=== PATIENT | male | born 1980 | race Two or more races ===

== ENCOUNTER 2021-08-11 10:24 | Inpatient (IN) | payer SELFPAY ==
[~2021-08-11] VITALS: Ht 165.1 cm; Wt 76.9 kg
[2021-08-11] MEDS ORDERED: MORPHINE SULFATE 4 MG/ML INJ. IVP ONE (10:45)
[2021-08-11] MEDS ORDERED: IV NORMAL SALINE 1000ML BAG 1,000 ML IV ONE ×2 (10:45)
[2021-08-11 10:54] LABS: BASO % 1 % (0-3); EOS # 0.1 x10^3/uL (0.0-0.7); EOS % 1 % (0-3); HEMATOCRIT 48.1 % (39.0-53.0); HEMOGLOBIN 16.2 g/dL (13.0-17.5); LYMPH # 2.8 x10^3/uL (1.0-4.8); LYMPH % 39 % (24-48); MEAN CORPUSCULAR HEMOGLOBIN 30 pg (25-35); MEAN CORPUSCULAR HGB CONC 34 g/dL (31-37); MEAN CORPUSCULAR VOLUME 90 fL (79-100); MONO # 0.5 x10^3/uL (0.0-1.1); MONO % 7 % (0-9); NEUT # 3.8 x10^3/uL (1.8-7.7); NEUT % 53 % (31-73); PLATELET COUNT 285 x10^3/uL (140-400); RED BLOOD COUNT 5.35 x10^6/uL (4.30-5.70); RED CELL DISTRIBUTION WIDTH 13.5 % (11.5-14.5); WHITE BLOOD COUNT 7.2 x10^3/uL (4.0-11.0)
[2021-08-11] MEDS ORDERED: TETANUS AND DIPHTHERIA TOX/PF 0.5 ML DISP.SYRIN. VAX IM ONE (11:00)
[2021-08-11 11:03] LABS: CALCIUM 9.4 mg/dL (8.5-10.1); CREATININE 0.8 mg/dL (0.7-1.3); GFR 107.1; POTASSIUM 3.5 mmol/L (3.5-5.1)
[2021-08-11 11:04] LABS: PROTHROMBIN TIME PATIENT 13.3 SEC (11.7-14.0)
[2021-08-11 11:09] LABS: TOTAL BILIRUBIN 0.5 mg/dL (0.2-1.0); TOTAL PROTEIN 7.9 g/dL (6.4-8.2)
--- NOTE | 2021-08-11 11:14 | RAD ---
EXAM: XR FOOT_LEFT 3 VIEWS 08/11/2021 10:43 AM CLINICAL INDICATION: Trauma, left foot injury COMPARISON: None TECHNIQUE: 3 views of the left foot FINDINGS: There is a comminuted and displaced fracture of the great toe distal phalanx. Mildly displ aced fracture of the great toe proximal phalanx. Comminuted, mildly displaced fracture of the second metatarsal. Large dorsal soft tissue injury of the forefoot. There is some soft tissue gas. No defini te radiopaque foreign body. IMPRESSION: 1. Comminuted displaced fractures of the great toe proximal and distal phalanges and the second metat arsal. 2. Large soft tissue laceration along the dorsal forefoot. Correlate clinically for open fracture. No definite radiopaque foreign body. Electronically signed by: Junay Leung MD (08/11/2021 11:11 AM) [id number]
[2021-08-11] MEDS ORDERED: LISINOPRIL 10 MG TABLET PO ONE (11:15)
[2021-08-11] MEDS ORDERED: HYDROmorphone 2 MG/ML INJ. IVP ONE (11:30)
[2021-08-11] MEDS ORDERED: PIPERACILLIN/TAZOBACTAM 3.375 GM in IV NORMAL SALINE 50ML 50 ML IV ONE (12:00)
[2021-08-11] MEDS ORDERED: ONDANSETRON PF 4 MG/2 ML VIAL. ONE (12:06)
[2021-08-11] MEDS ORDERED: LIDOCAINE 2% PF 5 ML VIAL. ONE (12:06)
[2021-08-11] MEDS ORDERED: PROPOFOL 10 MG/ML (20ML) VIAL. IV ONE (12:06)
[2021-08-11] MEDS ORDERED: DEXAMETHASONE SOD PHOS 4 MG/ML VIAL ONE (12:06)
[2021-08-11] MEDS ORDERED: FAMOTIDINE 20 MG/2 ML VIAL ONE (12:07)
[2021-08-11] MEDS ORDERED: fentaNYL PF VIAL 100 MCG/2 ML VIAL ONE ×2 (12:08→12:29)
[2021-08-11 12:30] LABS: AMPHETAMINE/METHAMPHETAMINE NEG (NEG); BARBITURATES NEG (NEG); BENZODIAZEPINES NEG (NEG); CANNABINOIDS NEG (NEG); COCAINE NEG (NEG); METHADONE NEG (NEG); OPIATES POS (NEG); PHENCYCLIDINE NEG (NEG)
--- NOTE | 2021-08-11 12:39 | PDOC2 ---
CONSULT Date of Consult Date of Consult DATE: 08/11/21 TIME: 12:33 Reason for Consult Reason for Consult: L foot open fx Identification/Chief Complaint Chief Complaint L foot pain and swelling Source Source: Patient History of Present Illness Reason for Visit: Pt is non-DM, non-smoker who sustained a brown stock washer injury to the L foot and subsequent Hallux and 3rd met open fx. The brown stock washer cut through the tennis shoe and lacerated the big toe. Hemostasis was achieved with compression at the thigh by friends. ER eval consisted XR [+] open avulsion fx at distal hallux and comminuted 3rd met shaft fx, minimally displaced. Pt then received IV zosyn for pseudomonas, gram +/- bacteria coverage. Emergent bedside washout was done with NS. The open lesions were dressed with gauze and stabilized with a posterior splint. At bedside, pt was resting comfortably. With the tool trouble shooter's help, we found out that pt ate at 6:30 AM. The injury happened around 10 AM today. He was able to sensate and move the toes without injury or pain elsewhere. Current Medications Current Medications Current Medications Morphine Sulfate (Morphine Sulfate) 4 mg 1X ONCE IVP Last administered on 08/11/21at 10:53; Start 08/11/21 at 10:45; Stop 08/11/21 at 10:46; Status DC Sodium Chloride 1,000 ml @ 1,000 mls/hr 1X ONCE IV Last administered on 08/11/21at 10:54; Start 08/11/21 at 10:45; Stop 08/11/21 at 11:44; Status DC Sodium Chloride 1,000 ml @ 1,000 mls/hr 1X ONCE IV Last administered on 08/11/21at 10:54; Start 08/11/21 at 10:45; Stop 08/11/21 at 11:44; Status DC Tetanus/ Diphtheria Toxoids (Tenivac Syringe) 0.5 ml ONCE ONCE VAX IM Last administered on 08/11/21at 10:58; Start 08/11/21 at 11:00; Stop 08/11/21 at 11:01; Status DC Lisinopril (Prinivil) 20 mg 1X ONCE PO ; Start 08/11/21 at 11:15; Stop 08/11/21 at 11:16; Status Cancel Hydromorphone HCl (Dilaudid) 1 mg 1X ONCE IVP Last administered on 08/11/21at 11:36; Start 08/11/21 at 11:30; Stop 08/11/21 at 11:31; Status DC Piperacillin Sod/ Tazobactam Sod 3.375 gm/Sodium Chloride 50 ml @ 100 mls/hr 1X ONCE IV Last administered on 08/11/21at 11:37; Start 08/11/21 at 12:00; Stop 08/11/21 at 12:29; Status DC Propofol (Diprivan) 200 mg STK-MED ONCE IV ; Start 08/11/21 at 12:06; Stop 08/11/21 at 12:06; Status DC Lidocaine HCl (Lidocaine Pf 2% Vial) 5 ml STK-MED ONCE .ROUTE ; Start 08/11/21 at 12:06; Stop 08/11/21 at 12:06; Status DC Dexamethasone Sodium Phosphate (Decadron) 4 mg STK-MED ONCE .ROUTE ; Start 08/11/21 at 12:06; Stop 08/11/21 at 12:06; Status DC Ondansetron HCl (Zofran) 4 mg STK-MED ONCE .ROUTE ; Start 08/11/21 at 12:06; Stop 08/11/21 at 12:06; Status DC Famotidine (Pepcid Vial) 20 mg STK-MED ONCE .ROUTE ; Start 08/11/21 at 12:07; Stop 08/11/21 at 12:07; Status DC Fentanyl Citrate (Fentanyl 2ml Vial) 100 mcg STK-MED ONCE .ROUTE ; Start 2 at 12:08; Stop 08/11/21 at 12:08; Status DC Fentanyl Citrate (Fentanyl 2ml Vial) 100 mcg STK-MED ONCE .ROUTE ; Start 08/11/21 at 12:29; Stop 08/11/21 at 12:30; Status DC Allergies Allergies: Coded Allergies: No Known Drug Allergies (Unverified , 08/11/21) ROS Review of System CONSTITUTIONAL: No fever. No chills. No dizziness. No weakness. CARDIOVASCULAR: No chest pain. No palpitations. No lower extremity edema. RESPIRATORY: No shortness of breath, cough, pain with respiration. No hemoptysis. No dyspnea. GASTROINTESTINAL: Normal appetite. No nausea, vomiting, diarrhea. GENITOURINARY: No frequency, urgency, nocturia. No hematuria or dysuria. MUSCULOSKELETAL: Refer to HPI INTEGUMENTARY: Refer to HPI NEUROLOGIC: No numbness or tingling of the extremities. No weakness. PSYCHIATRIC: No confusion. ENDOCRINE: No fatigue. No weakness. HEMATOLOGICAL: No bleeding. No petechiae. No bruising. ALLERGIES: No asthma. No urticaria Physical Exam Physical Exam AOx3, pleasant Dermatology: -Severe laceration without adequate soft tissue coverage to the distal hallux at the level of DIPJ. The wound bed is granular without any gross contamination from grass, soil or fibrotics. The laceration is deep to periosteum/distal hallux marrow without any active bleeding. With limited examination through the splint, there is no exposed tendon dorsally Vascular: -CFT less than 3 seconds x 5 -Significant soft dermal hematoma changes to the distal pulp of the hallux without any fluctuance Neurology: -Light touch sensation intact to digits 1 through 5 Musculoskeletal: -Able to move digits 1 through 5 -Calf is soft and nontender Vitals VITALS Vital Signs Date Time Temp Pulse Resp B/P (MAP) Pulse Ox O2 Delivery O2 Flow Rate FiO2 08/11/21 12:06 19 100 Room Air 08/11/21 10:24 97.5 66 149/93 (111) 97.5 Labs Labs Laboratory Tests Test 08/11/21 10:30 08/11/21 11:00 White Blood Count 7.2 x10^3/uL (4.0-11.0) Red Blood Count 5.35 x10^6/uL (4.30-5.70) Hemoglobin 16.2 g/dL (13.0-17.5) Hematocrit 48.1 % (39.0-53.0) Mean Corpuscular Volume 90 fL (79-100) Mean Corpuscular Hemoglobin 30 pg (25-35) Mean Corpuscular Hemoglobin Concent 34 g/dL (31-37) Red Cell Distribution Width 13.5 % (11.5-14.5) Platelet Count 285 x10^3/uL (140-400) Neutrophils (%) (Auto) 53 % (31-73) Lymphocytes (%) (Auto) 39 % (24-48) Monocytes (%) (Auto) 7 % (0-9) Eosinophils (%) (Auto) 1 % (0-3) Basophils (%) (Auto) 1 % (0-3) Neutrophils # (Auto) 3.8 x10^3/uL (1.8-7.7) Lymphocytes # (Auto) 2.8 x10^3/uL (1.0-4.8) Monocytes # (Auto) 0.5 x10^3/uL (0.0-1.1) Eosinophils # (Auto) 0.1 x10^3/uL (0.0-0.7) Basophils # (Auto) 0.0 x10^3/uL (0.0-0.2) Prothrombin Time 13.3 SEC (11.7-14.0) Prothromb Time International Ratio 1.0 (0.8-1.1) Activated Partial Thromboplast Time 23 SEC (24-38) Sodium Level 141 mmol/L (136-145) Potassium Level 3.5 mmol/L (3.5-5.1) Chloride Level 104 mmol/L (98-107) Carbon Dioxide Level 28 mmol/L (21-32) Anion Gap 9 (6-14) Blood Urea Nitrogen 15 mg/dL (8-26) Creatinine 0.8 mg/dL (0.7-1.3) Estimated GFR (Cockcroft-Gault) 107.1 BUN/Creatinine Ratio 19 (6-20) Glucose Level 116 mg/dL (70-99) Calcium Level 9.4 mg/dL (8.5-10.1) Total Bilirubin 0.5 mg/dL (0.2-1.0) Aspartate Amino Transf (AST/SGOT) 12 U/L (15-37) Alanine Aminotransferase (ALT/SGPT) 28 U/L (16-63) Alkaline Phosphatase 108 U/L (46-116) Total Protein 7.9 g/dL (6.4-8.2) Albumin 4.0 g/dL (3.4-5.0) Albumin/Globulin Ratio 1.0 (1.0-1.7) Ethyl Alcohol Level < 10 mg/dL (0-10) Urine Opiates Screen Pos (NEG) Urine Methadone Screen Neg (NEG) Urine Barbiturates Neg (NEG) Urine Phencyclidine Screen Neg (NEG) Urine Amphetamine/Methamphetamine Neg (NEG) Urine Benzodiazepines Screen Neg (NEG) Urine Cocaine Screen Neg (NEG) Urine Cannabinoids Screen Neg (NEG) Urine Ethyl Alcohol Neg (NEG) Laboratory Tests Test 08/11/21 10:30 08/11/21 11:00 White Blood Count 7.2 x10^3/uL (4.0-11.0) Red Blood Count 5.35 x10^6/uL (4.30-5.70) Hemoglobin 16.2 g/dL (13.0-17.5) Hematocrit 48.1 % (39.0-53.0) Mean Corpuscular Volume 90 fL (79-100) Mean Corpuscular Hemoglobin 30 pg (25-35) Mean Corpuscular Hemoglobin Concent 34 g/dL (31-37) Red Cell Distribution Width 13.5 % (11.5-14.5) Platelet Count 285 x10^3/uL (140-400) Neutrophils (%) (Auto) 53 % (31-73) Lymphocytes (%) (Auto) 39 % (24-48) Monocytes (%) (Auto) 7 % (0-9) Eosinophils (%) (Auto) 1 % (0-3) Basophils (%) (Auto) 1 % (0-3) Neutrophils # (Auto) 3.8 x10^3/uL (1.8-7.7) Lymphocytes # (Auto) 2.8 x10^3/uL (1.0-4.8) Monocytes # (Auto) 0.5 x10^3/uL (0.0-1.1) Eosinophils # (Auto) 0.1 x10^3/uL (0.0-0.7) Basophils # (Auto) 0.0 x10^3/uL (0.0-0.2) Prothrombin Time 13.3 SEC (11.7-14.0) Prothromb Time International Ratio 1.0 (0.8-1.1) Activated Partial Thromboplast Time 23 SEC (24-38) Sodium Level 141 mmol/L (136-145) Potassium Level 3.5 mmol/L (3.5-5.1) Chloride Level 104 mmol/L (98-107) Carbon Dioxide Level 28 mmol/L (21-32) Anion Gap 9 (6-14) Blood Urea Nitrogen 15 mg/dL (8-26) Creatinine 0.8 mg/dL (0.7-1.3) Estimated GFR (Cockcroft-Gault) 107.1 BUN/Creatinine Ratio 19 (6-20) Glucose Level 116 mg/dL (70-99) Calcium Level 9.4 mg/dL (8.5-10.1) Total Bilirubin 0.5 mg/dL (0.2-1.0) Aspartate Amino Transf (AST/SGOT) 12 U/L (15-37) Alanine Aminotransferase (ALT/SGPT) 28 U/L (16-63) Alkaline Phosphatase 108 U/L (46-116) Total Protein 7.9 g/dL (6.4-8.2) Albumin 4.0 g/dL (3.4-5.0) Albumin/Globulin Ratio 1.0 (1.0-1.7) Ethyl Alcohol Level < 10 mg/dL (0-10) Urine Opiates Screen Pos (NEG) Urine Methadone Screen Neg (NEG) Urine Barbiturates Neg (NEG) Urine Phencyclidine Screen Neg (NEG) Urine Amphetamine/Methamphetamine Neg (NEG) Urine Benzodiazepines Screen Neg (NEG) Urine Cocaine Screen Neg (NEG) Urine Cannabinoids Screen Neg (NEG) Urine Ethyl Alcohol Neg (NEG) Assessment/Plan Assessment/Plan Open fracture to left foot at the level of distal hallux and also third metatarsal shaft -S/p Zosyn IV antibiotics -Emergent washout to the open fracture site within 3 hours -I explained to patient that given the extent of soft tissue envelope injury, displaced fracture nature of the distal hallux, I was not able to salvage the distal hallux. Instead, I recommended distal hallux IPJ disarticulation with primary flap closure using the plantar pulp. Intraoperatively, I would stress the third metatarsal bone may consider K wire fixation percutaneously. Per literature review, there is no increased risk of hardware contamination or infection for fracture fixation. I may also consider wound VAC application for skin agile reapproximation. Intraoperatively, I will collect deep wound culture for guided antibiotic therapy -Patient verbalized understanding and understands that there is a high risk of delayed union, nonunion of the bone, infection and skin complications given the traumatic injury nature -N.p.o. -Stay protected in the splint and wait for surgery today -Pending Covid swab test Dispo: Patient to be admitted after surgery for least 2 to 3 days of IV antibiotics. MAYRA MCKEON DPM Aug 11, 2021 12:39
--- NOTE | 2021-08-11 13:30 | HP ---
DATE OF SERVICE: 08/11/2021 ADMIT DATE: 08/11/2021 CHIEF COMPLAINT: Left foot wound. HISTORY OF PRESENT ILLNESS: The patient is a pleasant, healthy 41-year-old male who was mowing grass with his friend. He apparently got his foot under the mower. We did some imaging. He has a second metatarsal fracture and the first toe has been partially amputated at the distal phalanx. Discussed the case with ER physician. We are admitting the patient with consultation to Dr. Olvera. The patient is going to surgery this afternoon. PAST MEDICAL HISTORY: Benign. ALLERGIES: None. FAMILY HISTORY: Diabetes. SOCIAL HISTORY: Does not drink, smoke or take drugs. He works as a lawnmower. MEDICATIONS: Reviewed, please refer to the MRAD. REVIEW OF SYSTEMS: GENERAL: No history of weight change, weakness or fevers. SKIN: No bruising, hair changes or rashes. EYES: No blurred, double or loss of vision. NOSE AND THROAT: No history of nosebleeds, hoarseness or sore throat. HEART: No history of palpitations, chest pain or shortness of breath on exertion. LUNGS: Denies cough, hemoptysis, wheezing or shortness of breath. GASTROINTESTINAL: Denies changes in appetite, nausea, vomiting, diarrhea or constipation. GENITOURINARY: No history of frequency, urgency, hesitancy or nocturia. NEUROLOGIC: Denies history of numbness, tingling, tremor or weakness. PSYCHIATRIC: No history of panic, anxiety or depression. ENDOCRINE: No history of heat or cold intolerance, polyuria or polydipsia. EXTREMITIES: He complains of left foot pain. PHYSICAL EXAMINATION: VITALS: Within normal limits and are stable. GENERAL: No apparent distress. Alert and oriented. HEENT: Normal cephalic atraumatic, external auditory canals are patent. EYES: Extraocular muscles are intact, pupils are equally round and reactive to light and accommodation. MUSCULOSKELETAL: Well developed, well nourished, good range of motion. ENDOCRINE: No thyromegaly was palpated. LYMPHATICS: No cervical chain or axillary nodes were noted. HEMATOPOIETIC: No bruising. NECK: Supple, no JVD, no thyromegaly was noted. LUNGS: Clear to auscultation in all lung richards without rhonchi or wheezing. HEART: RRR, S1, S2 present. Peripheral pulses intact, no obvious murmurs were noted. ABDOMEN: Soft, nontender. Positive bowel sounds no organomegaly, normal bowel sounds. EXTREMITIES: He has clean, dry and intact dressing of the left foot. NEUROLOGIC: Normal speech, normal tone. A and O x 3, moves all extremities, no obvious focal deficits. PSYCHIATRIC: Normal affect, normal mood. Stable. SKIN: No ulcerations or rashes, good skin turgor, no jaundice. VASCULAR: Good capillary refill, neurovascular bundle appears to be intact. ASSESSMENT AND PLAN: Left foot trauma after getting his foot caught under a running lawnmower with partial toe amputation and a second metatarsal fracture on the left. The patient has been admitted. We will consult Dr. Olvera. P.r.n. IV pain medications, IV fluids, home meds. Deep venous thrombosis prophylaxis. Full code. SUSANNE/NEEMA DR: Rahel TID: [id number]
--- NOTE | 2021-08-11 13:57 | PHYS DOC ---
Past Medical History Past Surgical History: No Surgical History Smoking Status: Never Smoker Alcohol Use: None General Adult EDM: Chief Complaint: TRAUMA ALERT HPI: HPI: Patient is a 41 year old M who presents with left foot trauma. Patient states that he was walking while working near his friend who was mowing a lawn, patient is a clinical trials specialist, and his left foot got stuck under the lawnmower. Patient states that he was wearing his shoe and sock. Patient states that the blade went through the shoe. Patient presents about 20 minutes after trauma. Patient last ate at 6:30 in the morning. Patient is otherwise hemodynamically stable. Patient is in pain but is not complaining about anything else. He is alert and oriented, afebrile. Review of Systems: Review of Systems: Constitutional: Denies fever or chills. [] Eyes: Denies change in visual acuity. [] HENT: Denies nasal congestion or sore throat. [] Respiratory: Denies cough or shortness of breath. [] Cardiovascular: Denies chest pain or edema. [] GI: Denies abdominal pain, nausea, vomiting, bloody stools or diarrhea. [] : Denies dysuria. [] Musculoskeletal: Denies back pain or joint pain. Positive left foot pain [] Integument: Denies rash. [] Neurologic: Denies headache, focal weakness or sensory changes. [] Endocrine: Denies polyuria or polydipsia. [] Lymphatic: Denies swollen glands. [] Psychiatric: Denies depression or anxiety. [] Heart Score: C/O Chest Pain: No Risk Factors: Risk Factors: DM, Current or recent (<one month) smoker, HTN, HLP, family history of CAD, obesity. Risk Scores: Score 0 - 3: 2.5% MACE over next 6 weeks - Discharge Home Score 4 - 6: 20.3% MACE over next 6 weeks - Admit for Clinical Observation Score 7 - 10: 72.7% MACE over next 6 weeks - Early Invasive Strategies Current Medications: Current Medications Medications (Trade) Dose Ordered Sig/Bowen Start Time Stop Time Status Last Admin Dose Admin Lisinopril (Prinivil) 20 mg 1X ONCE 08/11/21 11:15 08/11/21 11:16 Cancel Morphine Sulfate (Morphine Sulfate) 4 mg 1X ONCE 08/11/21 10:45 08/11/21 10:46 DC 4/18/22 10:53 4 MG Sodium Chloride 1,000 ml @ 1,000 mls/hr 1X ONCE 08/11/21 10:45 08/11/21 11:44 DC 08/11/21 10:54 1,000 MLS/HR Tetanus/ Diphtheria Toxoids (Tenivac Syringe) 0.5 ml ONCE ONCE 08/11/21 11:00 08/11/21 11:01 DC 08/11/21 10:58 0.5 ML Allergies: Allergies: Allergies Coded Allergies Type Severity Reaction Last Updated Verified No Known Drug Allergies 08/11/21 No Physical Exam: PE: Constitutional: Well developed, well nourished, no acute distress, non-toxic appearance. [] HENT: Normocephalic, atraumatic, bilateral external ears normal, oropharynx moist, no oral exudates, nose normal. [] Eyes: PERRLA, EOMI, conjunctiva normal, no discharge. [] Neck: Normal range of motion, no tenderness, supple, no stridor. [] Cardiovascular:Heart rate regular rhythm, no murmur [] Lungs & Thorax: Bilateral breath sounds clear to auscultation [] Abdomen: Bowel sounds normal, soft, no tenderness, no masses, no pulsatile jeremiah s. [] Skin: Warm, dry, no erythema, no rash. [] Back: No tenderness, no CVA tenderness. [] Extremities: Left foot trauma, first phalange avulsed, bone exposed, metatarsals exposed on the dorsal surface. Neurologic: Alert and oriented X 3, normal motor function, normal sensory function, no focal deficits noted. [] Psychologic: Affect normal, judgement normal, mood normal. [] Current Patient Data: Labs: Laboratory Tests Test 08/11/21 10:30 08/11/21 11:00 08/11/21 12:55 White Blood Count 7.2 x10^3/uL (4.0-11.0) Red Blood Count 5.35 x10^6/uL (4.30-5.70) Hemoglobin 16.2 g/dL (13.0-17.5) Hematocrit 48.1 % (39.0-53.0) Mean Corpuscular Volume 90 fL (79-100) Mean Corpuscular Hemoglobin 30 pg (25-35) Mean Corpuscular Hemoglobin Concent 34 g/dL (31-37) Red Cell Distribution Width 13.5 % (11.5-14.5) Platelet Count 285 x10^3/uL (140-400) Neutrophils (%) (Auto) 53 % (31-73) Lymphocytes (%) (Auto) 39 % (24-48) Monocytes (%) (Auto) 7 % (0-9) Eosinophils (%) (Auto) 1 % (0-3) Basophils (%) (Auto) 1 % (0-3) Neutrophils # (Auto) 3.8 x10^3/uL (1.8-7.7) Lymphocytes # (Auto) 2.8 x10^3/uL (1.0-4.8) Monocytes # (Auto) 0.5 x10^3/uL (0.0-1.1) Eosinophils # (Auto) 0.1 x10^3/uL (0.0-0.7) Basophils # (Auto) 0.0 x10^3/uL (0.0-0.2) Prothrombin Time 13.3 SEC (11.7-14.0) Prothrombin Time INR 1.0 (0.8-1.1) Activated Partial Thromboplast Time 23 SEC (24-38) L Sodium Level 141 mmol/L (136-145) Potassium Level 3.5 mmol/L (3.5-5.1) Chloride Level 104 mmol/L (98-107) Carbon Dioxide Level 28 mmol/L (21-32) Anion Gap 9 (6-14) Blood Urea Nitrogen 15 mg/dL (8-26) Creatinine 0.8 mg/dL (0.7-1.3) Estimated GFR (Cockcroft-Gault) 107.1 BUN/Creatinine Ratio 19 (6-20) Glucose Level 116 mg/dL (70-99) H Calcium Level 9.4 mg/dL (8.5-10.1) Total Bilirubin 0.5 mg/dL (0.2-1.0) Aspartate Amino Transferase (AST) 12 U/L (15-37) L Alanine Aminotransferase (ALT) 28 U/L (16-63) Alkaline Phosphatase 108 U/L (46-116) Total Protein 7.9 g/dL (6.4-8.2) Albumin 4.0 g/dL (3.4-5.0) Albumin/Globulin Ratio 1.0 (1.0-1.7) Ethyl Alcohol Level < 10 mg/dL (0-10) Urine Opiates Screen Pos (NEG) Urine Methadone Screen Neg (NEG) Urine Barbiturates Neg (NEG) Urine Phencyclidine Screen Neg (NEG) Urine Amphetamine/Methamphetamine Neg (NEG) Urine Benzodiazepines Screen Neg (NEG) Urine Cocaine Screen Neg (NEG) Urine Cannabinoids Screen Neg (NEG) Urine Ethyl Alcohol Neg (NEG) SARS-CoV-2 Antigen (Rapid) Negative (NEGATIVE) Laboratory Tests 08/11/21 10:30 Laboratory Tests 08/11/21 10:30 Vital Signs: Vital Signs Date Time Temp Pulse Resp B/P (MAP) Pulse Ox O2 Delivery O2 Flow Rate FiO2 08/11/21 12:06 19 100 Room Air 08/11/21 10:24 97.5 66 149/93 (111) 97.5 EKG: EKG: [] Radiology/Procedures: Radiology/Procedures: PATIENT: MARTI BAGLEYACCOUNT: [id number] : 1980 LOCATION: ER AGE: 41 SEX: M EXAM STATUS: PRE ER ORD. PHYSICIAN: AVEL JACOBSEN MD REASON: trauma, left foot injury PROCEDURE: FOOT LEFT 3V EXAM: XR FOOT_LEFT 3 VIEWS 08/11/2021 10:43 AM CLINICAL INDICATION: Trauma, left foot injury COMPARISON: None TECHNIQUE: 3 views of the left foot FINDINGS: There is a comminuted and displaced fracture of the great toe distal phalanx. Mildly displaced fracture of the great toe proximal phalanx. Comminuted, mildly displaced fracture of the second metatarsal. Large dorsal soft tissue injury of the forefoot. There is some soft tissue gas. No definite radiopaque foreign body. IMPRESSION: 1. Comminuted displaced fractures of the great toe proximal and distal phalanges and the second metatarsal. 2. Large soft tissue laceration along the dorsal forefoot. Correlate clinically for open fracture. No definite radiopaque foreign body. Electronically signed by: Juany Leung MD (08/11/2021 11:11 AM) [id number] DICTATED and SIGNED BY: JUANY LEUNG MD DATE: 08/11/21 1108 Impression: 5-year-old male with left first phalange open fracture as well as second metatarsal open fracture secondary to lawnmower accident Course & Med Decision Making: Course & Med Decision Making Pertinent Labs and Imaging studies reviewed. (See chart for details) Patient was seen and evaluated, trauma team activated. Spoke to trauma surgeon after x-ray. Patient hemodynamically stable. Patient given fluids, pain medications, tetanus updated. Patient started on Zosyn per podiatry. Patient admitted to service of Dr. Melgar with consultation of podiatry as well as trauma surgery. Patient admitted in stable condition. Patient to the OR today. Dragon Disclaimer: Dragon Disclaimer: This electronic medical record was generated, in whole or in part, using a voice recognition dictation system. Departure Departure Referrals: NO PCP (PCP) AVEL JACOBSEN MD Aug 11, 2021 13:57
[2021-08-11] MEDS ORDERED: IV RINGERS,LACTATED 1000ML 1,000 ML IV SCH (14:00)
[2021-08-11] MEDS ORDERED: ROCURONIUM 50 MG/5 ML VIAL. ONE (14:03)
[2021-08-11] MEDS ORDERED: SUCCINYLCHOLINE 200 MG/10 ML VIAL. ONE (14:03)
[2021-08-11] MEDS ORDERED: HYDROmorphone 2 MG/ML INJ. IVP PRN (14:15)
[2021-08-11] MEDS ORDERED: fentaNYL PF VIAL 100 MCG/2 ML VIAL IVP PRN ×2 (14:15)
[2021-08-11] MEDS ORDERED: PROCHLORPERAZINE 10 MG/2 ML VIAL. IVP PRN (14:15)
[2021-08-11] MEDS ORDERED: MORPHINE SULFATE 2 MG/ML INJ. IVP PRN (14:15)
[2021-08-11] MEDS ORDERED: HYDROmorphone 2 MG/ML INJ. ONE (14:50)
[2021-08-11] MEDS ORDERED: SEVOFLURANE 61 TO 120 MINUTES. IH ONE (14:51)
[2021-08-11] MEDS ORDERED: BUPIVACAINE MPF 0.25% 30 ML VIAL. ONE (15:03)
--- NOTE | 2021-08-11 15:46 | PDOC4 ---
OPERATIVE NOTE Date: Date: Aug 11, 2021 Pre-Op Diagnosis: Left foot open fracture to the distal hallux and second metatarsal shaft Post-Op Diagnosis: Same as above Procedure Performed: Left foot incision and drainage, partial hallux amputation and primary skin closure Surgeon: Mayra Mckeon DPM Anesthesia Type: General Blood Loss: 20 cc Specimans Obtained: Deep tissue swab culture from the hallux and dorsal forefoot, left Osteomyelitis rule out to the distal hallux, left Findings: Open fracture to the left hallux to the level of the proximal hallux. The fracture was comminuted with degloved skin envelope and also periosteum. The EHL and FHL were spared. There was minimal to no grass contamination to the wound bed. Wound bed bled adequately. There was no proximal streaking, fluctuance or tracking noted. Completely degloved dorsal forefoot skin spanning from the first metatarsal base laterally to the fifth metatarsal base. The underlying extensor tendons were spared. Comminuted second metatarsal shaft fracture with relatively preserved periosteum surrounding the second metatarsal fracture site. Intraoperative stress test was insignificant for gross instability to the second metatarsal. There was no significant shortening or frontal plane or sagittal plane rotation to the second metatarsal. The soft tissue envelope and wound bed were granular and blood adequately. There was minimal to no grass contamination to the wound. Complications: None Operative Note: Patient was brought into the operating room and placed on the operating table in a supine position. A timeout was performed to confirm patient's identity, location of surgery and procedure. After induction of general anesthesia, a pneumatic high ankle tourniquet was placed with pressure set 250 mmHg. The left lower extremity was then scrubbed, prepped and draped in the usual sterile manner. The tourniquet was not inflated. Then the attention was directed to left forefoot. 3 L saline was used to irrigate to the wound bed via cysto tubing. Afterwards, deep tissue culture was collected to the hallux and dorsal forefoot. The cultures were sent for Gram stain, culture, sensitivity for anaerobes and anaerobes. Then the hallux wound was inspected and noted comminuted fracture to the level of proximal hallux head. In addition, the distal hallux skin envelope was significantly ecchymotic and concerning for survivorship. I was not convinced that the hallux would survive more with adequate skin closure. Then the decision was made to remove the fragmented bone to the level of the proximal hallux head using a sagittal saw. The very distal stump of the hallux was also sent for pathology for osteomyelitis rule out. Then the distal skin of the hallux was remodeled in a fishmouth fashion and was able to close and cover the hallux stump with minimal to no tension. Then the attention was directed to the dorsal forefoot. Although it was a full- thickness degloving injury, the underlying deep fascia, extensor tendons were spared. There was minimal to no grass contamination within the wound bed. The wound bed was granular and bled well. The second metatarsal shaft was noted to comminuted however the surrounding periosteum layer was relatively intact. Therefore, the fracture fragments were relatively stable. Intraoperative x-ray stress test was insignificant for frontal plane, transverse plane or length def icit across the second metatarsal. The decision then was made not to put any hardware for fixation especially given the extent of the degloving injury and risk of infection. The periosteum would hold the fragments in place which would heal through secondary healing. Then both the hallux and dorsal forefoot were irrigated again with 3 L of saline. Wound bed was inspected and free from debris, grass, soil. Then both laceration sites were closed in layers with 3-0 Vicryl and 3-0 nylon under minimal tension. Postoperative anesthesia consisted of 10 cc of 0.25% Marcaine plain was infiltrated to the surgical site. The surgical sites were dressed with Xeroform, gauze, ABD. The left lower extremity was immobilized in a Naylor compression splint with ankle held at 90 degrees. Patient tolerated procedure anesthesia well with vital signs stable and neurovascular status intact. Patient was then transferred to PACU for continued recovery. Pending surgical foot x-ray 3 view in PACU. Dispo: Skin flap check in 24 hours. Continue with Vanco and Zosubhashn for empiric antibiotics while waiting for intraoperative culture and pathology to finalize. Strict nonweightbearing to the surgical lower extremity, elevate with toes above the heart. MAYRA MCKEON DPM Aug 11, 2021 15:46
[2021-08-11] MEDS ORDERED: VANCOMYCIN 1 GM in IV NORMAL SALINE 250ML 250 ML IV SCH (16:00)
--- NOTE | 2021-08-11 16:06 | RAD ---
AP, lateral, and oblique views of the left foot were obtained. History: Reason: pacu / Spl. Instructions: / History: Comparison: 10:37 AM same day. First toe has been amputated at the level of the base of the first proximal phalanx. Stable comminute d fracture of the midshaft of the second metatarsal. Overlying cast artifact is seen. Electronically signed by: Jay Davis MD (08/11/2021 4:04 PM) [facility]
[2021-08-11] MEDS ORDERED: VANCOMYCIN 2 GM in IV NORMAL SALINE 500ML BAG 500 ML IV ONE (16:30)
[2021-08-11] MEDS: VANCOMYCIN PER PHARMACY MC PRN (17:31)
--- NOTE | 2021-08-11 17:37 | NUR ---
Pharmacy Vancomycin Dosing Note S:Consulted to monitor and dose vancomycin started . O:MARTI BAGLEY is a 41 year old M with Prophylaxis of open foot wound . Height: 5 feet, 5 inches Weight: 76.9 kg Bloomery Body Weight: 61.50 Adjusted Body Weight: 67.66 Dosing Weight: Actual Other Antibiotics: LABS: Last BUN: 15 Last Creatinine: 0.8 Creatinine Clearance: 117 mL/min Last WBC: 7.2 Last Procalcitonin: Tmax (past 24 hours): 97.9 Microbiology: I/O: Drug Levels: Last level: on at Last dose given 08/11/21 at 1708 Vancomycin Dosing: Loading Dose: 2000 mg x1 Dosing Weight: Actual Target Trough: 10-20 A: Based on weight and est. CrCl: P: 1. Give vancomycin 2000mg, followed by Vancomycin 1000 mg IV q8h. 2. Follow up Trough level on 08/12/21 at 1630. 3. Pharmacy will continue to monitor, follow and adjust therapy as needed. Issa Dorado, [facility], 08/11/21 [id number]
[2021-08-11 19:25] VITALS: BP 128/85
[2021-08-11] MEDS ORDERED: ONDANSETRON PF 4 MG/2 ML VIAL. IVP PRN (19:30)
[2021-08-11 19:40] VITALS: BP 125/70
[2021-08-11] MEDS: oxyCODONE/APAP 5/325 1 TAB TABLET PO PRN (19:41)
[2021-08-11] MEDS ORDERED: PIP/TAZO PER PHARMACY MC PRN (20:00)
[2021-08-11 20:10] VITALS: BP 114/68
[2021-08-11 20:40] VITALS: BP 113/69
[2021-08-11 21:40] VITALS: BP 113/70
[2021-08-11 23:18] VITALS: BP 125/82
[2021-08-12] VITALS (7 sets, daily range): BP systolic 106–125; BP diastolic 62–84
[2021-08-12] MEDS: PIPERACILLIN/TAZOBACTAM 3.375 GM in IV NORMAL SALINE 50ML 50 ML IV SCH ×5 (00:03→23:43)
[2021-08-12] MEDS: VANCOMYCIN 1 GM in IV NORMAL SALINE 250ML 250 ML IV SCH ×3 (01:37→17:30)
[2021-08-12] MEDS: oxyCODONE/APAP 5/325 1 TAB TABLET PO PRN ×4 (02:56→21:35)
[2021-08-12] MEDS: VANCOMYCIN PER PHARMACY MC PRN ×2 (10:20→18:18)
--- NOTE | 2021-08-12 10:59 | PDOC ---
[facility] [facility] PROGRESS NOTE Date of Service DOS: DATE: 08/12/21 TIME: 10:57 Chief Complaint Chief Complaint Postop day 1 left foot trauma Left foot open fracture to the distal hallux and second metatarsal shaft Complete degloving History of Present Illness History of Present Illness 08/12/2021 Patient seen and examined Discussed with RN Discussed with case management Chart reviewed I called Dr. Olvera he is going to come see the patient again today (he is concerned about all of the tissue damage and would like to hopefully keep the patient for another day or 2) Vitals/I&O Vitals/I&O: Vital Signs Date Time Temp Pulse Resp B/P (MAP) Pulse Ox O2 Delivery O2 Flow Rate FiO2 08/12/21 08:03 Room Air 08/12/21 07:00 98.1 79 18 109/67 (81) 96 98.1 08/11/21 16:10 8.0 I & O 08/11/21 08/11/21 08/12/21 15:00 23:00 07:00 Intake Total 3050 ml 850 ml 400 ml Output Total 320 ml 550 ml Balance 3050 ml 530 ml -150 ml Physical Exam General: Alert Heart: Regular rate Lungs: Clear Abdomen: Normal bowel sounds, Other Extremities: Other (Clean dry intact dressing) Skin: No rashes Labs Labs: Laboratory Tests Test 08/11/21 11:00 08/11/21 12:55 Urine Opiates Screen Pos (NEG) Urine Methadone Screen Neg (NEG) Urine Barbiturates Neg (NEG) Urine Phencyclidine Screen Neg (NEG) Urine Amphetamine/Methamphetamine Neg (NEG) Urine Benzodiazepines Screen Neg (NEG) Urine Cocaine Screen Neg (NEG) Urine Cannabinoids Screen Neg (NEG) Urine Ethyl Alcohol Neg (NEG) SARS-CoV-2 Antigen (Rapid) Negative (NEGATIVE) Assessment and Plan Assessmemt and Plan Problems Medical Problems: (1) Traumatic injury of foot Status: Acute Postop day 1 left foot trauma Left foot open fracture to the distal hallux and second metatarsal shaft Complete degloving Plan Wound care IV antibiotics Dr. Olvera is going to check on the patient again later today Home meds DVT prophylaxis Full code As needed pain meds Appreciate Dr. Olvera's intervention Comment Review of Relevant I have reviewed the following items aislinn (where applicable) has been applied. Medications: Current Medications Medications (Trade) Dose Ordered Sig/Bowen Route PRN Reason Start Time Stop Time Status Last Admin Dose Admin Tetanus/ Diphtheria Toxoids (Tenivac Syringe) 0.5 ml ONCE ONCE VAX IM 08/11/21 11:00 08/11/21 11:01 DC 08/11/21 10:58 Hydromorphone HCl (Dilaudid) 1 mg 1X ONCE IVP 08/11/21 11:30 08/11/21 11:31 DC 08/11/21 11:36 Piperacillin Sod/ Tazobactam Sod 3.375 gm/Sodium Chloride 50 ml @ 100 mls/hr 1X ONCE IV 08/11/21 12:00 08/11/21 12:29 DC 08/11/21 11:37 Ringer's Solution 1,000 ml @ 30 mls/hr Q24H IV 08/11/21 14:00 08/12/21 01:59 DC 08/11/21 14:00 Bupivacaine HCl (Sensorcaine Mpf 0.25%) 30 ml STK-MED ONCE .ROUTE 08/11/21 15:03 08/11/21 15:03 DC 08/11/21 15:00 Vancomycin HCl (Vanco Per Pharmacy) 1 each PRN DAILY PRN MC SEE COMMENTS 08/11/21 16:00 08/12/21 10:20 Vancomycin HCl 2 gm/Sodium Chloride 500 ml @ 250 mls/hr 1X ONCE IV 08/11/21 16:30 08/11/21 18:29 DC 08/11/21 17:08 Vancomycin HCl 1 gm/Sodium Chloride 250 ml @ 250 mls/hr Q8H IV 08/12/21 01:00 08/12/21 09:08 Oxycodone/ Acetaminophen (Percocet 5/325) 1 tab PRN Q4HRS PRN PO MODERATE TO SEVERE PAIN 08/11/21 18:15 08/12/21 02:56 Ondansetron HCl (Zofran) 4 mg PRN Q6HRS PRN IVP NAUSEA/VOMITING 08/11/21 19:30 08/11/21 19:41 Piperacillin Sod/ Tazobactam Sod 3.375 gm/Sodium Chloride 50 ml @ 100 mls/hr Q6HRS IV 08/12/21 00:00 08/12/21 05:16 Justifications for Admission Other Justification ZOE OSORIO III DO Aug 12, 2021 10:59
--- NOTE | 2021-08-12 13:40 | PDOC ---
PROGRESS NOTES Date of Service DATE: 08/12/21 TIME: 13:32 Subjective Subjective [DOS 08/11/21] s/p left foot incision and drainage, direct primary skin closure to dorsal degloved skin, partial hallux amputation in the setting of G-A type II/IIIA open fracture Patient was seen at bedside. Denies overnight events or constitutional symptoms. The dressing has been kept clean and dry and tolerated well. The surgical foot is elevated on two pillows with the toes near the heart level. The pain is well managed with current medicine. Otherwise, patient denies any calf pain or any constitutional symptoms. Objective Objective Vital Signs Date Time Temp Pulse Resp B/P (MAP) Pulse Ox O2 Delivery O2 Flow Rate FiO2 08/12/21 12:00 16 Room Air 08/12/21 11:00 98.9 82 114/72 (86) 97 98.9 08/11/21 16:10 8.0 Intake and Output 08/12/21 07:00 Intake Total 4300 ml Output Total 870 ml Balance 3430 ml Intake Oral 600 ml IV Total 3700 ml Output Urine Total 850 ml Estimated Blood Loss 20 ml Physical Exam Physical Exam General: Pleasant without apparent distress, AOx3 Left lower extremity focused Dermatology: -Upon dressing removal, sutures are intact without any active drainage or dehiscence. -The medial hallux skin flap is mildly edematous and blanchable without any ischemic changes -The dorsal forefoot erythema has significantly receded -There is no fluctuance or proximal streaking notedd Vascular: -DP/PT palpable -Foot is warm to touch with CFT less than 3 seconds x 5 -Erythematous blanchable without necrotic, violaceous skin changes Neurology: -Light touch sensation diminished to the level of [] MSK: -[+] TTP at medial hallux stump -[+] TTP at 2nd met shaft -Able to move digits, but less at hallux stump -Muscle strength 5 out of 5 across ankle joint -Calf is soft and nontender Assessment Assessment Problems Medical Problems: (1) Traumatic injury of foot Status: Acute Plan Plan of Care DOS 08/12, left forefoot incision and drainage, directed primary repair of degloved skin, partial hallux amputation in the setting of G-A type II/IIIA open fracture -Clinically, the skin edges are stable remain well approximated with sutures. There are no signs of fracture blisters, purulence or ischemic skin changes -The surgical site was dressed with Xeroform, gauze. The left lower extremity was immobilized in a well-padded Naylor compression splint with ankle held at 90 degrees. Adequate digital perfusion was noted -Keep the splint and dressing clean, dry and intact -Weightbearing restriction: Strict nonweightbearing to left lower extremity, elevate with toes above the heart -Intraoperative deep tissue culture [08/11]: Pending -Intraoperative pathology [08/11]: Pending -Empiric antibiotic therapy: Vancomycin and Zosyn Dispo: Complete 2 days of IV antibiotics from the time of surgery and then discharge with oral antibiotics, driven by culture for 14 days. Remain nonweightbearing to the surgical lower extremity and keep the dressing clean, dry and intact. Patient will follow-up with me as an outpatient for skin check. Comment Review of Relevant I have reviewed the following items aislinn (where applicable) has been applied. Labs Laboratory Tests Test 08/11/21 10:30 08/11/21 11:00 08/11/21 12:55 White Blood Count 7.2 x10^3/uL (4.0-11.0) Red Blood Count 5.35 x10^6/uL (4.30-5.70) Hemoglobin 16.2 g/dL (13.0-17.5) Hematocrit 48.1 % (39.0-53.0) Mean Corpuscular Volume 90 fL (79-100) Mean Corpuscular Hemoglobin 30 pg (25-35) Mean Corpuscular Hemoglobin Concent 34 g/dL (31-37) Red Cell Distribution Width 13.5 % (11.5-14.5) Platelet Count 285 x10^3/uL (140-400) Neutrophils (%) (Auto) 53 % (31-73) Lymphocytes (%) (Auto) 39 % (24-48) Monocytes (%) (Auto) 7 % (0-9) Eosinophils (%) (Auto) 1 % (0-3) Basophils (%) (Auto) 1 % (0-3) Neutrophils # (Auto) 3.8 x10^3/uL (1.8-7.7) Lymphocytes # (Auto) 2.8 x10^3/uL (1.0-4.8) Monocytes # (Auto) 0.5 x10^3/uL (0.0-1.1) Eosinophils # (Auto) 0.1 x10^3/uL (0.0-0.7) Basophils # (Auto) 0.0 x10^3/uL (0.0-0.2) Prothrombin Time 13.3 SEC (11.7-14.0) Prothromb Time International Ratio 1.0 (0.8-1.1) Activated Partial Thromboplast Time 23 SEC (24-38) Sodium Level 141 mmol/L (136-145) Potassium Level 3.5 mmol/L (3.5-5.1) Chloride Level 104 mmol/L (98-107) Carbon Dioxide Level 28 mmol/L (21-32) Anion Gap 9 (6-14) Blood Urea Nitrogen 15 mg/dL (8-26) Creatinine 0.8 mg/dL (0.7-1.3) Estimated GFR (Cockcroft-Gault) 107.1 BUN/Creatinine Ratio 19 (6-20) Glucose Level 116 mg/dL (70-99) Calcium Level 9.4 mg/dL (8.5-10.1) Total Bilirubin 0.5 mg/dL (0.2-1.0) Aspartate Amino Transf (AST/SGOT) 12 U/L (15-37) Alanine Aminotransferase (ALT/SGPT) 28 U/L (16-63) Alkaline Phosphatase 108 U/L (46-116) Total Protein 7.9 g/dL (6.4-8.2) Albumin 4.0 g/dL (3.4-5.0) Albumin/Globulin Ratio 1.0 (1.0-1.7) Ethyl Alcohol Level < 10 mg/dL (0-10) Urine Opiates Screen Pos (NEG) Urine Methadone Screen Neg (NEG) Urine Barbiturates Neg (NEG) Urine Phencyclidine Screen Neg (NEG) Urine Amphetamine/Methamphetamine Neg (NEG) Urine Benzodiazepines Screen Neg (NEG) Urine Cocaine Screen Neg (NEG) Urine Cannabinoids Screen Neg (NEG) Urine Ethyl Alcohol Neg (NEG) SARS-CoV-2 Antigen (Rapid) Negative (NEGATIVE) Medications Current Medications Morphine Sulfate (Morphine Sulfate) 4 mg 1X ONCE IVP Last administered on 08/11/21at 10:53; Start 08/11/21 at 10:45; Stop 08/11/21 at 10:46; Status DC Sodium Chloride 1,000 ml @ 1,000 mls/hr 1X ONCE IV Last administered on 08/11/21at 10:54; Start 08/11/21 at 10:45; Stop 08/11/21 at 11:44; Status DC Sodium Chloride 1,000 ml @ 1,000 mls/hr 1X ONCE IV Last administered on 08/11/21at 10:54; Start 08/11/21 at 10:45; Stop 08/11/21 at 11:44; Status DC Tetanus/ Diphtheria Toxoids (Tenivac Syringe) 0.5 ml ONCE ONCE VAX IM Last administered on 08/11/21at 10:58; Start 08/11/21 at 11:00; Stop 08/11/21 at 11:01; Status DC Lisinopril (Prinivil) 20 mg 1X ONCE PO ; Start 08/11/21 at 11:15; Stop 08/11/21 at 11:16; Status Cancel Hydromorphone HCl (Dilaudid) 1 mg 1X ONCE IVP Last administered on 08/11/21at 11:36; Start 08/11/21 at 11:30; Stop 08/11/21 at 11:31; Status DC Piperacillin Sod/ Tazobactam Sod 3.375 gm/Sodium Chloride 50 ml @ 100 mls/hr 1X ONCE IV Last administered on 08/11/21at 11:37; Start 08/11/21 at 12:00; Stop 08/11/21 at 12:29; Status DC Propofol (Diprivan) 200 mg STK-MED ONCE IV ; Start 08/11/21 at 12:06; Stop 08/11/21 at 12:06; Status DC Lidocaine HCl (Lidocaine Pf 2% Vial) 5 ml STK-MED ONCE .ROUTE ; Start 08/11/21 at 12:06; Stop 08/11/21 at 12:06; Status DC Dexamethasone Sodium Phosphate (Decadron) 4 mg STK-MED ONCE .ROUTE ; Start 08/11/21 at 12:06; Stop 08/11/21 at 12:06; Status DC Ondansetron HCl (Zofran) 4 mg STK-MED ONCE .ROUTE ; Start 08/11/21 at 12:06; Stop 08/11/21 at 12:06; Status DC Famotidine (Pepcid Vial) 20 mg STK-MED ONCE .ROUTE ; Start 08/11/21 at 12:07; Stop 08/11/21 at 12:07; Status DC Fentanyl Citrate (Fentanyl 2ml Vial) 100 mcg STK-MED ONCE .ROUTE ; Start 08/11/21 at 12:08; Stop 08/11/21 at 12:08; Status DC Fentanyl Citrate (Fentanyl 2ml Vial) 100 mcg STK-MED ONCE .ROUTE ; Start 08/11/21 at 12:29; Stop 08/11/21 at 12:30; Status DC Succinylcholine Chloride (Anectine) 200 mg STK-MED ONCE .ROUTE ; Start 08/11/21 at 14:03; Stop 08/11/21 at 14:03; Status DC Rocuronium [place] (Zemuron) 50 mg STK-MED ONCE .ROUTE ; Start 08/11/21 at 14:03; Stop 08/11/21 at 14:04; Status DC Fentanyl Citrate (Fentanyl 2ml Vial) 25 mcg PRN Q5MIN PRN IVP MILD PAIN 1-3; Start 08/11/21 at 14:15; Stop 08/11/21 at 18:05; Status DC Fentanyl Citrate (Fentanyl 2ml Vial) 50 mcg PRN Q5MIN PRN IVP MODERATE PAIN 4- 6; Start 08/11/21 at 14:15; Stop 08/11/21 at 18:05; Status DC Morphine Sulfate (Morphine Sulfate) 1 mg PRN Q10MIN PRN IVP SEVERE PAIN 7-10; Start 08/11/21 at 14:15; Stop 08/11/21 at 18:05; Status DC Ringer's Solution 1,000 ml @ 30 mls/hr Q24H IV Last administered on 08/11/21at 14:00; Start 08/11/21 at 14:00; Stop 08/12/21 at 01:59; Status DC Hydromorphone HCl (Dilaudid) 0.5 mg PRN Q10MIN PRN IVP SEVERE PAIN 7-10, 2nd CHOICE; Start 08/11/21 at 14:15; Stop 08/11/21 at 18:05; Status DC Prochlorperazine Edisylate (Compazine) 5 mg PACU PRN PRN IVP NAUSEA, MRX1; Start 08/11/21 at 14:15; Stop 08/11/21 at 18:08; Status DC Hydromorphone HCl (Dilaudid) 2 mg STK-MED ONCE .ROUTE ; Start 08/11/21 at 14:50; Stop 08/11/21 at 14:50; Status DC Sevoflurane (Ultane) 60 ml STK-MED ONCE IH ; Start 08/11/21 at 14:51; Stop 08/11/21 at 14:51; Status DC Bupivacaine HCl (Sensorcaine Mpf 0.25%) 30 ml STK-MED ONCE .ROUTE Last administered on 08/11/21at 15:00; Start 08/11/21 at 15:03; Stop 08/11/21 at 15:0 3; Status DC Vancomycin HCl 1 gm/Sodium Chloride 250 ml @ 250 mls/hr Q12H IV ; Start 08/11/21 at 16:00; Status UNV Vancomycin HCl (Vanco Per Pharmacy) 1 each PRN DAILY PRN MC SEE COMMENTS Last administered on 08/12/21at 10:20; Start 08/11/21 at 16:00 Vancomycin HCl 2 gm/Sodium Chloride 500 ml @ 250 mls/hr 1X ONCE IV Last administered on 08/11/21at 17:08; Start 08/11/21 at 16:30; Stop 08/11/21 at 18:29; Status DC Vancomycin HCl 1 gm/Sodium Chloride 250 ml @ 250 mls/hr Q8H IV Last administered on 08/12/21at 09:08; Start 08/12/21 at 01:00 Vancomycin HCl (Vancomycin Trough Level) 1 each 1X ONCE MC ; Start 08/12/21 at 16:30; Stop 08/12/21 at 16:31 Oxycodone/ Acetaminophen (Percocet 5/325) 1 tab PRN Q4HRS PRN PO MODERATE TO SEVERE PAIN Last administered on 08/12/21at 11:30; Start 08/11/21 at 18:15 Ondansetron HCl (Zofran) 4 mg PRN Q6HRS PRN IVP NAUSEA/VOMITING Last administered on 08/11/21at 19:41; Start 08/11/21 at 19:30 Piperacillin Sod/ Tazobactam Sod 3.375 gm/Sodium Chloride 50 ml @ 100 mls/hr Q6HRS IV Last administered on 08/12/21at 11:28; Start 08/12/21 at 00:00 Piperacillin Sod/ Tazobactam Sod (Zosyn Per Pharmacy) 1 each PRN DAILY PRN MC SEE COMMENTS; Start 08/11/21 at 20:00 Lactobacillus Rhamnosus (Culturelle) 1 cap BID PO ; Start 08/12/21 at 21:00 Active Scripts Active Reported No Known Medications Prior To Admisstion (Info) Each 1 Each MC 1X Vitals/I & O Vital Sign - Last 24 Hours 08/11/21 08/11/21 08/11/21 08/11/21 13:56 15:26 15:26 15:40 Temp 97.9 97.1 97.9 97.1 Pulse 79 70 68 Resp 20 17 14 B/P (MAP) 140/92 117/73 123/71 Pulse Ox 98 100 100 O2 Delivery Room Air Simple Mask Room Air Simple Mask O2 Flow Rate 8.0 8.0 08/11/21 08/11/21 08/11/21 08/11/21 15:55 16:10 16:25 16:30 Temp 97.3 97.3 Pulse 68 66 68 Resp 17 12 18 B/P (MAP) 125/75 130/76 127/80 Pulse Ox 100 100 97 O2 Delivery Simple Mask Simple Mask Room Air O2 Flow Rate 8.0 8.0 08/11/21 08/11/21 08/11/21 08/11/21 17:24 19:25 19:40 19:41 Temp 98.1 98.2 98.1 98.2 Pulse 73 77 Resp 18 18 20 B/P (MAP) 128/85 (99) 125/70 (88) Pulse Ox 97 95 97 O2 Delivery Room Air Room Air Room Air Room Air 08/11/21 08/11/21 08/11/21 08/11/21 20:00 20:10 20:11 20:40 Temp 98.3 98.2 98.3 98.2 Pulse 78 73 Resp 18 20 18 B/P (MAP) 114/68 (83) 113/69 (84) Pulse Ox 97 97 97 O2 Delivery Room Air Room Air Room Air Room Air 08/11/21 08/11/21 08/12/21 08/12/21 21:40 23:18 00:18 02:56 Temp 98.2 98.2 98.1 98.2 98.2 98.1 Pulse 81 86 87 Resp 20 18 20 20 B/P (MAP) 113/70 (84) 125/82 (96) 106/62 (77) Pulse Ox 97 96 96 96 O2 Delivery Room Air Room Air Room Air Room Air 08/12/21 08/12/21 08/12/21 08/12/21 03:09 03:26 07:00 08:03 Temp 98.2 98.1 98.2 98.1 Pulse 81 79 Resp 20 20 18 B/P (MAP) 125/84 (98) 109/67 (81) Pulse Ox 97 97 96 O2 Delivery Room Air Room Air Room Air Room Air 08/12/21 08/12/21 08/12/21 11:00 11:30 12:00 Temp 98.9 98.9 Pulse 82 Resp 16 20 16 B/P (MAP) 114/72 (86) Pulse Ox 97 O2 Delivery Room Air Room Air Room Air Intake and Output 08/11/21 08/11/21 08/12/21 15:00 23:00 07:00 Intake Total 3050 ml 850 ml 400 ml Output Total 320 ml 550 ml Balance 3050 ml 530 ml -150 ml Justifications for Admission Other Justification MAYRA MCKEON DPChristopher Aug 12, 2021 13:40
--- NOTE | 2021-08-12 13:46 | NUR ---
Rehab screen completed. Pt would benefit from PT/OT eval and treat due to recent surgery and [facility] status. Please initiate if you agree. Addendum: 08/12/21 at 1348 by VIKA HUGHES PT Amended: Links added.
[2021-08-12 17:01] LABS: VANC TR 11.3 mcg/mL (10.0-20.0)
--- NOTE | 2021-08-12 18:21 | NUR ---
Pharmacy Vancomycin Dosing Note S: Consulted to monitor and dose vancomycin started 08/11/21. O: FRANKIMARTI Chapa is a 41 year old M with , Prophylaxis of open foot wound . Other Antibiotics: ZOSYN LABS: Last BUN: 15 Last Creatinine: 0.8 Creatinine Clearance: >100 mL/min Last WBC: 7.2 Last Procalcitonin: Tmax (past 24 hours): 98.3 Microbiology: - I/O: 4300/870 Drug Levels: Last Trough level: 11.3 on 08/12/21 at 1630 Last dose given 08/12/21 at 0908 Vancomycin Dosing: Dosing Weight: Actual Target Trough: 10-20 A: Based on: P: 1. Continue Vancomycin 1000 mg IV q8h 2. Follow up Trough level as needed. 3. Pharmacy will continue to monitor, follow and adjust therapy as needed. [facility], 08/12/21 [id number]
[2021-08-12] MEDS: LACTOBACILLUS RHAMNOSUS GG 1 CAPSULE. PO SCH (21:35)
[2021-08-13] MEDS: VANCOMYCIN 1 GM in IV NORMAL SALINE 250ML 250 ML IV SCH ×3 (01:28→16:02)
[2021-08-13 03:26] VITALS: BP 116/71
[2021-08-13] MEDS: PIPERACILLIN/TAZOBACTAM 3.375 GM in IV NORMAL SALINE 50ML 50 ML IV SCH ×4 (05:45→23:39)
[2021-08-13 05:47] LABS: CALCIUM 8.4 mg/dL (8.5-10.1); CREATININE 0.8 mg/dL (0.7-1.3); GFR 107.1; POTASSIUM 3.5 mmol/L (3.5-5.1)
[2021-08-13 07:00] VITALS: BP 120/71
[2021-08-13 07:04] LABS: BASO % 0 % (0-3); EOS % 1 % (0-3); HEMATOCRIT 40.5 % (39.0-53.0); HEMOGLOBIN 13.7 g/dL (13.0-17.5); LYMPH # 2.6 x10^3/uL (1.0-4.8); LYMPH % 26 % (24-48); MEAN CORPUSCULAR HEMOGLOBIN 31 pg (25-35); MEAN CORPUSCULAR HGB CONC 34 g/dL (31-37); MEAN CORPUSCULAR VOLUME 91 fL (79-100); MONO # 0.9 x10^3/uL (0.0-1.1); MONO % 9 % (0-9); NEUT # 6.3 x10^3/uL (1.8-7.7); NEUT % 64 % (31-73); PLATELET COUNT 245 x10^3/uL (140-400); RED BLOOD COUNT 4.47 x10^6/uL (4.30-5.70); RED CELL DISTRIBUTION WIDTH 13.5 % (11.5-14.5)
[2021-08-13] MEDS: LACTOBACILLUS RHAMNOSUS GG 1 CAPSULE. PO SCH ×2 (08:10→20:16)
[2021-08-13] MEDS: VANCOMYCIN PER PHARMACY MC PRN (10:08)
--- NOTE | 2021-08-13 10:08 | NUR ---
Pharmacy Vancomycin Dosing Note S: Consulted to monitor and dose vancomycin started 08/11/21. O: FRANKIMARTI Chapa is a 41 year old M with , Prophylaxis of open foot wound . Other Antibiotics: ZOSYN LABS: Last BUN: 10 Last Creatinine: 0.8 Creatinine Clearance: >100 mL/min Last WBC: 10.0 Last Procalcitonin: Tmax (past 24 hours): 98.9 Microbiology: - I/O: Drug Levels: Last Trough level: 11.3 on 08/12/21 at 1630 Last dose given 08/13/21 at 0811 Vancomycin Dosing: Dosing Weight: Actual Target Trough: 10-20 A: Based on: P: 1. Vancomycin 1000 mg IV q8h 2. Follow up Trough level if needed. 3. Pharmacy will continue to monitor, follow and adjust therapy as needed. CHARLEE ADAM James, 08/13/21 [id number]
[2021-08-13 11:00] VITALS: BP 115/78
[2021-08-13] MEDS: oxyCODONE/APAP 5/325 1 TAB TABLET PO PRN ×3 (11:00→23:38)
--- NOTE | 2021-08-13 11:31 | PDOC ---
[employer] PROGRESS NOTE Date of Service DOS: DATE: 08/13/21 TIME: 11:29 Chief Complaint Chief Complaint Left foot trauma with Left open fracture to the distal hallux and second metatarsal shaft status post left I&D with partial hallux amputation and primary skin closure 08/12/2021 Complete degloving Continue 1 more day of IV antibiotics Pending repeat evaluation by podiatry History of Present Illness History of Present Illness 08/13/2021 No acute events overnight. Patient seen examined bedside. Pain is well controlled. Tolerating diet. Patient's chart, labs, images were reviewed and discussed with RN 08/12/2021 Patient seen and examined Discussed with RN Discussed with case management Chart reviewed I called Dr. Olvera he is going to come see the patient again today (he is concerned about all of the tissue damage and would like to hopefully keep the patient for another day or 2) Vitals/I&O Vitals/I&O: Vital Signs Date Time Temp Pulse Resp B/P (MAP) Pulse Ox O2 Delivery O2 Flow Rate FiO2 08/13/21 07:28 Room Air 08/13/21 07:00 98.8 67 18 120/71 (87) 95 98.8 I & O 0 08/12/21 08/12/21 08/13/21 15:00 23:00 07:00 Intake Total 480 ml Output Total 450 ml Balance 30 ml Physical Exam General: Alert Heart: Regular rate Lungs: Clear Abdomen: Normal bowel sounds, Other Extremities: Other (Clean dry intact dressing) Skin: No rashes Labs Labs: Laboratory Tests Test 08/12/21 16:30 08/13/21 03:50 Vancomycin Level Trough 11.3 mcg/mL (10.0-20.0) Vancomycin Last Dose Date Vancomycin Last Dose Time White Blood Count 10.0 x10^3/uL (4.0-11.0) Red Blood Count 4.47 x10^6/uL (4.30-5.70) Hemoglobin 13.7 g/dL (13.0-17.5) Hematocrit 40.5 % (39.0-53.0) Mean Corpuscular Volume 91 fL (79-100) Mean Corpuscular Hemoglobin 31 pg (25-35) Mean Corpuscular Hemoglobin Concent 34 g/dL (31-37) Red Cell Distribution Width 13.5 % (11.5-14.5) Platelet Count 245 x10^3/uL (140-400) Neutrophils (%) (Auto) 64 % (31-73) Lymphocytes (%) (Auto) 26 % (24-48) Monocytes (%) (Auto) 9 % (0-9) Eosinophils (%) (Auto) 1 % (0-3) Basophils (%) (Auto) 0 % (0-3) Neutrophils # (Auto) 6.3 x10^3/uL (1.8-7.7) Lymphocytes # (Auto) 2.6 x10^3/uL (1.0-4.8) Monocytes # (Auto) 0.9 x10^3/uL (0.0-1.1) Eosinophils # (Auto) 0.0 x10^3/uL (0.0-0.7) Basophils # (Auto) 0.0 x10^3/uL (0.0-0.2) Sodium Level 142 mmol/L (136-145) Potassium Level 3.5 mmol/L (3.5-5.1) Chloride Level 108 mmol/L (98-107) Carbon Dioxide Level 27 mmol/L (21-32) Anion Gap 7 (6-14) Blood Urea Nitrogen 10 mg/dL (8-26) Creatinine 0.8 mg/dL (0.7-1.3) Estimated GFR (Cockcroft-Gault) 107.1 Glucose Level 94 mg/dL (70-99) Calcium Level 8.4 mg/dL (8.5-10.1) Assessment and Plan Assessmemt and Plan Problems Medical Problems: (1) Traumatic injury of foot Status: Acute Comment Review of Relevant I have reviewed the following items aislinn (where applicable) has been applied. Medications: Current Medications Medications (Trade) Dose Ordered Sig/Bowen Route PRN Reason Start Time Stop Time Status Last Admin Dose Admin Vancomycin HCl (Vancomycin Trough Level) 1 each 1X ONCE MC 08/12/21 16:30 08/12/21 16:31 DC 08/12/21 16:30 Lactobacillus Rhamnosus (Culturelle) 1 cap BID PO 08/12/21 21:00 08/13/21 08:10 Justifications for Admission Other Justification SAMANTA SMITH MD Aug 13, 2021 11:31
[2021-08-13 15:00] VITALS: BP 121/75
[2021-08-13 19:00] VITALS: BP 127/81
[2021-08-13 23:00] VITALS: BP 116/81
[2021-08-14] MEDS: VANCOMYCIN 1 GM in IV NORMAL SALINE 250ML 250 ML IV SCH ×2 (01:00→10:09)
[2021-08-14] MEDS: oxyCODONE/APAP 5/325 1 TAB TABLET PO PRN ×2 (05:37→10:18)
[2021-08-14] MEDS: PIPERACILLIN/TAZOBACTAM 3.375 GM in IV NORMAL SALINE 50ML 50 ML IV SCH ×2 (05:38→12:16)
[2021-08-14 07:00] VITALS: BP_SYST 110; BP_SYST 132; BP_DIAS 71; BP_DIAS 82
[2021-08-14] MEDS ORDERED: AMOX1TAB61 PO (07:54)
[2021-08-14] MEDS ORDERED: OXYC1TAB15 PO (07:54)
--- NOTE | 2021-08-14 07:57 | DISCH ---
DISCHARGE INSTRUCTIONS Condition on Discharge Condition on Discharge: Stable Activity After Discharge Activity Instructions for Disc: Activity as tolerated Exercise Instruction after Dis: Walk 10 min, 3 x per day Driving Instructions after Dis: Do not drive today Weight Bearing Status after Di: Non weight bearing Diet after Discharge Diet after Discharge: Cardiac Follow-Up Follow up with: PCP within 2 weeks of discharge Follow Up With: Podiatry as scheduled or as needed for skin check SAMANTA SMITH MD Aug 14, 2021 07:57
[2021-08-14] MEDS: LACTOBACILLUS RHAMNOSUS GG 1 CAPSULE. PO SCH (08:26)
[2021-08-14 11:00] VITALS: BP 116/89
--- NOTE | 2021-08-14 13:42 | NUR ---
Discharge instructions given. Answered questions and concerns. Both pt and verbalized understanding. Pt discharged home. Escorted by w/c.
--- NOTE | 2021-08-18 11:33 | PATHOLOGY ---
[facility] Accession Number: [id number] . 01 Material submitted: . PART A: hallux - LEFT GREAT TOE HALLUX- R/O OSTEOMYELITIS. Modifiers: left PART B: hallux - LEFT GREAT TOE. Modifiers: left . 01 Clinical history: . TRAUMATIC INJURY LT TOES . 02 Diagnosis: A. Segment of bone and soft tissue, left great toe hallux: - Fragmentation of bone and recent intertrabecular hemorrhage - no evidence of acute osteomyelitis. . B. Segments of bone, skin and subcutaneous tissue, left great toe: - Focal fragmentation of bone with recent intertrabecular hemorrhage and focal early acute inflammation consistent with traumatic fracture. - Focal recent hemorrhage, early acute inflammation, and embedded foreign material within deep soft tissues of toe, consistent with traumatic fracture. (JPM:madelaine; 08/15/2021) MBR 08/15/2021 1755 Local . 02 Electronically signed: . Pawel Sorensen MD, Pathologist NPI- [id number] . 01 Gross description: . A. The specimen is received in formalin, labeled "Angel Burgess, left great toe hallux". Received is a segment of yellow-montgomery to slightly hemorrhagic-appearing bone measuring 1.8 x 1.0 x 0.7 cm in greatest dimensions. The specimen is bisected and entirely submitted in cassette A1, following decalcification. . B. The specimen is received in formalin, labeled "Angel Burgess, left great toe". Received are three irregular segments of hemorrhagic-appearing bone, consistent with possible fracture, measuring 3.8 x 2.2 x 1.5 cm in aggregate dimensions. Also received within the specimen container are multiple segments of pale montgomery skin with attached underlying tissue measuring 5.5 x 3.8 x 2.5 cm in aggregate dimensions. Fingerprint Expert sections of bone are submitted in cassette B1, following decalcification. Fingerprint Expert sections of skin and soft tissue are submitted in cassette B2. (CAA; 08/13/2021) QAC/QAC 08/13/2021 1213 Local . 02 Pathologist provided ICD-10: M89.8X7 . 02 CPT . 131925, 902281, 831827, 312218 Specimen Comment: A courtesy copy of this report has been sent to [phone], [phone] Specimen Comment: [id number] Specimen Comment: Report sent to / DR OSORIO Specimen Comment: A duplicate report has been generated due to demographic updates. Performed at: 01 [facility] [address] [facility] [address], [place] [id number] MD Franco Gutierrez MD Phone: [phone] Performed at: 02 [facility] [address] [place], [place] [id number] MD Pawel Sorensen MD Phone: [phone]
== END 2021-08-14 13:49 | disposition home or self-care (01) | DRG 504 ==
LOC: SURG 10:24 → ED HOLD 11:18 → 4 NORTH 16:44
PROVIDERS: ADMIT Internal Medicine; ATTEND Internal Medicine
PROC: 0Y6Q0Z1 Detachment at Left 1st Toe, High, Open Approach (ICD-10-PCS; principal; 2021-08-11 12:30)
DX: S92.322A Displaced fracture of second metatarsal bone, left foot, initial encounter for closed fracture (principal); M86.8X7 Other osteomyelitis, ankle and foot; S99.922A Unspecified injury of left foot, initial encounter; S98.139A Complete traumatic amputation of one unspecified lesser toe, initial encounter; W28.XXXA Contact with powered lawn mower, initial encounter; Z20.822 Contact with and (suspected) exposure to COVID-19; Z83.3 Family history of diabetes mellitus; Y93.89 Activity, other specified; Y92.89 Other specified places as the place of occurrence of the external cause; Y99.8 Other external cause status
CPT/HCPCS: 36415; 73630; 80048; 80053; 80202; 80307; 85025; 85610; 85730; 86850; 86900; 86901; 87075; 87077; 87186; 87426; 90471; 90714; 96361; 96365; 96375; A4209; A4930; A6253; A6402; A6449; A6450; G0480; J0330; J1100; J1170; J2270; J2405; J2543; J2704; J3010; J3370; J3490; J7030; J7040; J7050; J7120; 99285-25; G0378